=== PATIENT | male | born 1950 | race Caucasian/White ===

== ENCOUNTER → 2016-08-18 | Outpatient (CLI) | payer OTHER ==
[~2016-08-18] VITALS: Ht 177.8 cm; Wt 103.4 kg
[~2016-08-18] MED LIST: ADULT LOW DOSE81 MG PO; AGGRENOX CAPSU1 EACH PO; ASPIR-TRIN325 MG PO; AVODART0.5 MG PO; BACTRIM DS TAB1 EACH PO; CALCIUM 600 +1 EAC1 PO; CARDURA4 MG PO; CIPROFLOXACIN500 M1 PO; COENZYME Q10200 M2 PO; DICLOFENAC SOD50 M1 PO; DICLOFENAC SODI75 MG PO; ELAVIL PO; EXCEDRIN CAPLE1 EACH PO; FISH OIL500 M1 PO; FLAGYL500 MG PO; FLEXERIL PO; GLUCOSAMINE HC500 MG PO; HUMIRA40 MG/0.8 SQ; HYDROCODONE-AP1 EAC6 PO; IRON 100 PLUS1 EACH PO; KEFLEX500 MG PO; LIVALO4 MG PO; LUTEIN20 MG PO; LYRICA 50 MG50 MG PO; LYRICA100 MG PO; MAGNESIUM400 MG PO; MEDROL DOSPAK21 TA1 PO; MEDROLDOSEPACK PO; MELATONIN5 M1 PO; METHYLPREDNISOLO4 M1 PO; NEURONTIN 300M300 M1 PO; NEURONTIN 300M300 M2; NORCO 5-325 TA1 EACH PO; NORFLEX100 MG PO; NUCYNTA50 MG PO; ODORLESS GARLI500 MG PO; PRAVACHOL40 MG PO; PROTONIX PO; PROTONIX40 M2 PO; SAW PALMETTO 1160 MG PO; SUPER MULTIVIT1 EACH PO; TRILIPIX135 MG PO; VALIUM5 MG PO; VITAMIN B-12500 MCG PO; VITAMIN C1000 M1 PO; VITAMIN D 5050000 I1 PO; VITAMIN D5000 UNI1 PO; VOLTAREN GEL 1100 G2 TOP; ZANAFLEX2 M1 PO; ZANAFLEX4 MG PO; ZOCOR 20 MG TAB20 M1 PO; [UNRECOGNIZED DRUG - OTHER] PO; [UNRECOGNIZED DRUG - OTHER] PO
--- NOTE | ~2016-08-18 | HPC ---
[facility] [place] [address] PAIN MANAGEMENT CONSULTATION Name: GAMINGANN BROWN Room #: REG [facility] Mike#: [id number] Admission: 08/18/16 Attend Phys: Preston Newsome DO Discharge: Date of : 54 Report #: [id number] THIS REPORT FOR: //name// CC: Preston CIFUENTES DATE OF SERVICE: 08/18/2016 DATE OF SERVICE: 08/18/2015 CHIEF COMPLAINT: Right buttock and posterolateral thigh pain. HISTORY OF PRESENT ILLNESS: As you know, patient is a 66-year-old male, who underwent examination of the lumbar spine with imaging that did show an abnormal finding within the right iliopsoas muscle. We then had the patient readmitted to the area with MRI as the CT could not determine whether or not this was a simple fluid cyst, hematoma or possible infectious source. The patient underwent MRI, which does appear to show more of a cystic hematoma type picture than an infectious picture. As you are aware, the patient is currently taking immune modulating medications and there was concern that may had a spontaneous nidus of infection. He is showing no changes that would be concerning of bacteremia or sepsis. He returns today stating his pain has begun to improve, but is placing pain score 6/10. Exacerbated with bending and twisting, improves with lying down, stretching and medications. He returns discussed possibility of undergoing epidural injection under fluoroscopic guidance to address suspected lumbar radicular symptoms now that we have been able to effectively prove that the findings and iliopsoas muscle are likely either hematoma or simple cyst. ALLERGIES: CODEINE, CELECOXIB. CURRENT MEDICATIONS: See extensive list in chart. SOCIAL HISTORY: The patient denies tobacco, alcohol or IV or illicit drug use. He is accompanied by his , is present in room. IMAGING: CT of lumbar spine obtained on 08/06/2016 shows a small simple fluid density within the right iliac area measuring 2.1 x 1.9 cm, density of 10 Hounsfield units, delayed phase, likely cystic ganglion. Chronic hematoma, seroma are considerations. PHYSICAL EXAMINATION: VITAL SIGNS: Blood pressure 119/70, pulse 66, respiratory rate 18 and unlabored. The patient 96% on room air. Height 5 feet 10 inches tall, weight 228 pounds, BMI calculated 32.7. [place] [id number] PAIN MANAGEMENT CONSULTATION Name: ANN GAMING Room #: REG [facility]#: [id number] Admission: 08/18/16 Attend Phys: Preston Newsome DO Discharge: Date of : 54 Report #: [id number] GENERAL: Well developed, well nourished, well hydrated 66-year-old male appearing stated age, placing pain score today around 6/10. HEENT: Normocephalic, atraumatic. Pupils equal, round, reactive to light. Extraocular muscles are intact. EXTREMITIES: Show no clubbing, no cyanosis, no edema. MUSCULOSKELETAL: Seated straight leg raising is negative. Supine straight leg raising mildly positive on the right. Fabere's test negative. Modified gaenslen is positive for axial low back pain. ASSESSMENT: 1. Lumbar radiculopathy. 2. Spinal stenosis of lumbar spine. 3. Displacement of lumbar intervertebral disk with radiculopathy. 4. Lumbosacral spondylosis with radiculopathy. 5. 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 6. Chronic intractable pain. PLAN: 1. The patient is returning today in followup visit where we have reviewed both the MRI and the CT examination appears that the patient does have either cystic formation or ganglionic cyst within the iliac muscle on the right. There is possibility of seroma or hematoma, though the patient denies any injury to the area. We were concerned there was a possible nidus of infection given the fact the patient is on chronic immune modulating medications. I am pleased to indicate to the patient this is not the case, we can move forward with possible epidural injection to address what appears to be lumbar radicular symptoms. The cystic formation itself does not appear to be causing a direct impingement on any of the nerves as they traversed through the area and I do not feel this is the necessary source of the patient's pain. We have discussed with the patient the possibility of undergoing an epidural injection to address this possible lumbar radicular symptoms. The patient was amenable and does wish to undergo the procedure, was advised risks and benefits. These risks include but are not necessarily limited to bleeding, bruising, infection, worsening pain, no relief of pain, also risk of temporary or permanent muscle weakness, temporary or permanent nerve damage, possible paralysis and . The patient states understood and wished to proceed. 2. No medication changes were made at today's visit. The patient to continue current medical therapy as previously prescribed. 3. The patient to return to our clinic in approximately 3 weeks for possible repeat epidural injection depending on the efficacy of today's procedure. PROCEDURE NOTE DESCRIPTION OF PROCEDURE: L5-S1 right paramedian epidural steroid injection under fluoroscopic guidance. [address] [address] PAIN MANAGEMENT CONSULTATION Name: ANN GAMING Room #: REG [facility]#: [id number] Admission: 08/18/16 Attend Phys: Preston Newsome DO Discharge: Date of : 54 Report #: [id number] After obtaining written consent, the patient was taken back to fluoroscopy suite, placed in prone position with pillow under abdomen to decrease lumbar lordosis. Skin overlying the lumbosacral area prepped and draped in aseptic fashion. The L5-S1 vertebral interspace identified by AP fluoroscopy. Skin and subcutaneous tissue overlying the target site of injection was anesthetized with 3 mL of 1% lidocaine. A 20-gauge 3-1/2 inch Tuohy needle was advanced under fluoroscopic guidance towards the epidural space using a right paramedian approach. Epidural space was identified using loss of resistance air technique. After negative aspiration for heme or cerebrospinal fluid, 1 mL of Omnipaque was injected. Lumbar epidurogram was confirmed using both AP and lateral fluoroscopy. After negative aspiration for heme or cerebrospinal fluid, 5 mL of a solution containing 2 mL 40 mg per mL, 80 mg total triamcinolone and 3 mL lidocaine 1% was injected slowly. Needle retracted approximately fdc, needle tract flushed 3 mL 1% lidocaine. Needle then removed. Sterile bandage placed over the injection site. No new motor deficits present in lower extremity following procedure. The patient tolerated procedure well, carefully to recovery in stable condition. No apparent complications. After meeting discharge criteria, the patient discharged home. <ELECTRONICALLY SIGNED> By: Preston Newsome DO 08/24/16 0701 [id number] Preston Newsome DO /nt
[2016-08-18 12:52] VITALS: BP 119/70
== END | disposition home or self-care (01) ==
LOC: PAIN 06:16
DX: M51.16 Intervertebral disc disorders with radiculopathy, lumbar region (principal); M48.06 Spinal stenosis, lumbar region; M47.27 Other spondylosis with radiculopathy, lumbosacral region; M79.9 Soft tissue disorder, unspecified; G89.29 Other chronic pain

== ENCOUNTER 2017-11-09 17:11 | Emergency (ER) | payer OTHER ==
[~2017-11-09] VITALS: Ht 177.8 cm; Wt 104.3 kg
[2017-11-09 17:27] VITALS: BP 146/76
[2017-11-09] MEDS ORDERED: NORCO 5-325 TA1 EACH PO (18:33)
== END 2017-11-09 19:04 | disposition home or self-care (01) ==
LOC: ER 17:11
DX: M54.12 Radiculopathy, cervical region (principal); G95.0 Syringomyelia and syringobulbia; Z88.5 Allergy status to narcotic agent; Z88.8 Allergy status to other drugs, medicaments and biological substances; Z88.4 Allergy status to anesthetic agent

== ENCOUNTER → 2018-09-22 | Outpatient (CLI) | payer OTHER | LOC: ULTRA 14:51 | DX: N43.3 Hydrocele, unspecified (principal); N50.3 Cyst of epididymis ==

== ENCOUNTER 2018-11-23 07:03 | Emergency (ER) | payer OTHER ==
[~2018-11-23] VITALS: Ht 177.8 cm; Wt 244.9 kg
[2018-11-23 07:48] VITALS: BP 129/49
== END 2018-11-23 08:13 | disposition home or self-care (01) ==
LOC: ER 07:03
DX: R33.9 Retention of urine, unspecified (principal); Z88.5 Allergy status to narcotic agent; Z88.8 Allergy status to other drugs, medicaments and biological substances

== ENCOUNTER → 2019-01-30 | Outpatient (CLI) | payer OTHER | LOC: RAD 08:48 | DX: M16.11 Unilateral primary osteoarthritis, right hip (principal); M25.751 Osteophyte, right hip ==